=== PATIENT | female | born 2000 | race Caucasian/White ===

== ENCOUNTER 2022-07-07 11:13 | Outpatient (CLI) | payer BC, SELFPAY ==
[2022-07-07 14:08] LABS: Kit Draw Collected
== END 2022-07-07 11:14 | disposition home or self-care (01) ==
LOC: ANHGOSHLAB 11:15
PROVIDERS: PCP Family Medicine; Visit Provider Family Medicine
DX: F41.8 Other specified anxiety disorders (principal); E66.3 Overweight; Z79.899 Other long term (current) drug therapy
CPT/HCPCS: 36415

== ENCOUNTER 2024-11-18 08:44 | Outpatient (CLI) | payer BC, SELFPAY ==
--- NOTE | ~2024-11-18 | US_ITS ---
Pelvic ultrasound. Clinical History: Pelvic pain Technique: Realtime transabdominal and transvaginal scanning of the pelvis was performed. Color flow Doppler and Doppler spectral analysis were performed. Findings: The uterus is retroverted.. The endometrial stripe has a thickness of 3 mm. No focal mass is identified. The right ovary measures 2.2 x 2.3 x 1.4 cm. No significant right ovarian or adnexal mass is seen. The left ovary measures 2.2 x 1.7 x 1.7 cm. No significant left ovarian or adnexal mass is seen. There is no evidence of free fluid in the cul de sac. Impression: Unremarkable pelvic ultrasound. Reviewed, dictated and finalized at location . Impression: Unremarkable pelvic ultrasound.
== END 2024-11-18 08:45 | disposition home or self-care (01) ==
LOC: GOSHIMG 08:44
PROVIDERS: PCP Obstetrics & Gynecology; Visit Provider Obstetrics & Gynecology
DX: R10.2 Pelvic and perineal pain (principal)
CPT/HCPCS: 76830; 76856

== ENCOUNTER 2024-11-28 00:38 | Day surgery (SDC) | payer OTHER, BC, SELFPAY ==
--- NOTE | 2024-11-21 10:52 | PC.NURSE ---
Report to the Outpatient Waiting Room, entrance under the green pavilion located off [facility], at time 0800_ on date _11/28/24_. Planned Procedure Time: _1000_.? Time changes happen often and if your time is changed the preop area will call you the afternoon before. - You and your visitor will be asked to self-screen and do not enter if you have any COVID symptoms. Please call surgeon if you need to reschedule. - A mask is optional within the hospital at this time. Patients may have clear liquids (water, carbonated beverages, clear teas, apple juice) until 3 hours prior to surgery with a maximum of 20 ounces. - No food from midnight until time of surgery and no smoking, or chewing tobacco (or any form of nicotine). No chewing gum, candy or mints. - Infants may have breast milk until 4 hours before surgery, infant formula 6 hours prior to surgery. - Children will be allowed to drink immediately following surgery.? If applicable, please bring a bottle or sippy cup to assist with drinking. Juice, water, soda, and popsicles are readily available.? For infants on formula, please bring formula the day of surgery.? Pacifiers are allowed. Take only the following medications with a SIP of water on the morning of surgery: __AMITRYPTILNE, VENLAFAXINE DO NOT STOP ANY OF YOUR OTHER PRESCRIPTION MEDICATIONS PRIOR TO SURGERY EXCEPT THE FOLLOWING Hold all vitamins and supplements for 3 days per anesthesiologist. Medications to discontinue per physician Date to take last dose Please no make-up, nail belarusian, hairspray, perfume, deodorant, or body powder the day of surgery.? No jewelry (including any body piercings) or valuables the day of surgery, leave them at home.? Please take a shower or bath the night before, or the morning of, surgery with an antibacterial soap.? Wear comfortable, loose fitting clothing.? Children are encouraged to wear pajamas. - Jewelry must be removed prior to entering the operating room.? Rings and piercings that are not removed may be cut off. - The hospital will not accept responsibility for valuables.? - Please leave all valuables, including medications, at home the day of surgery. If you are going home after surgery, a licensed tier truck driver must drive you home.? - NO public transportation without another adult if you receive anesthesia. - We recommend that an adult stay with you for 24 hours following discharge. - We also recommend that you do not drive, make important decision, drink alcoholic beverages, or take any drugs that were not prescribed by your health care provider for at least 24 hours after your discharge time. For Pediatric surgeries, we recommend two adults accompany the child home. Follow any additional instructions given to you from your surgeon. Telephone instructions given to _PATIENT_and asked if any additional questions and then verbalized understanding. Patient advised to call surgeon office or pre surgery nurse liaison [phone] if any additional questions.
--- NOTE | 2024-11-27 10:57 | PM.IMHP ---
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 She is on depo-provera w/o issue (has been on it for at least 3 years; took a break but then has been back on it for another 3 years). Her last injection was the beginning of August 2024. She has a h/o severe pelvic pain; why she has been on depo for so long. She reports that she took a 1 year break, but OCPs did not help (even continuous), she tried Orilissa for a short time too, but that gave her severe hot flashes. She has not ever had surgery, but would like to proceed with surgery this summer. She denies any AUB. She denies any vaginal issues. She denies any breast issues. She is sexually active; has pain (worse when not on depo). She denies any bowel/bladder issues. Review of Systems Constitutional: Constitutional: Denies chills, Denies fever(s) and Denies headache(s) Eyes: Eyes: Denies change in vision ENT: Denies dizziness and Denies headache(s) Cardiovascular: Cardiovascular: Denies chest pain and Denies dyspnea Respiratory: Respiratory: Denies cough and Denies dyspnea Gastrointestinal: Gastrointestinal: Reports abdominal pain and Denies change in stool character Genitourinary: Genitourinary: Denies abnormal menses, Reports pelvic pain, Denies vaginal discharge, Denies vaginal odor and Denies vaginal pruritus Neurologic: Denies dizziness and Denies headache(s) Psychiatric: Psychiatric: Denies anxiety and Denies depression [facility] Past Medical History Medical History Asthma Anxiety Allergies Migraines Surgical History Surgical History H/O shoulder surgery H/O foot surgery extra bone removed from foot Family History Family History Grandparent Diabetes mellitus Heart disease Hodgkins lymphoma Skin cancer Asthma Depression Cerebrovascular accident Thyroid disorder Father Hypertension Mother Depression Sibling Depression Social History Social History (Updated 09/12/24 @ 08:07 by Fabio Farrar MA) Smoking status: Never smoker Alcohol intake: current Alcohol use details: 2 PER MONTH Substance use: never Substance use type: does not use Do You Feel Safe in your Home?: Yes Lack of Transportation: No Lack of Food: Never True Current Housing: I Have Housing Concerned About Future Housing: No Difficulty Paying Gas/Electric Bills: No Difficulty Paying for Meds: No Currently Unemployed: No Education: Bachelor's Degree Difficulty w/ Childcare or Family Care: No Living arrangements: with family Occupation/Education: occupation Additional occupation/education comments: teacher Gender identity (if verbalized by the patient): Female Sexual Orientation (if Verbalized by the Patient): Straight or Heterosexual Meds Home Medications and Allergies Home Medications ?Medication ?Instructions ?Recorded ?Confirmed ?Type venlafaxine 150 mg See Rx Instructions .Route 07/13/24 11/21/24 Rx capsule,extended release 24 hr .COMPLEX #90 caps medroxyprogesterone 150 mg/mL 150 mg IM ONCE #1 mL 09/02/24 11/21/24 Rx intramuscular suspension amitriptyline 10 mg tablet See Rx Instructions .Route 10/06/24 11/21/24 Rx .COMPLEX #60 tabs Allergies Allergy/AdvReac Type Severity Reaction Status Date / Time pseudoephedrine (From AdvReac Intermediate Hives Verified 11/21/24 10:45 Sudafed) Exam Const: General: cooperative, healthy appearing, comfortable and no acute distress Orientation/consciousness: patient oriented x3 Resp: Effort & Inspection: normal respiratory effort Cardio: Rate: regular rate GI: Inspection: normal to inspection GI Palp: No abdominal tenderness and Yes Soft to palpation : Other: deferred to OR Skin: General skin exam: normal color Neuro: General: patient oriented x3 Extrem: General: normal to inspection Psych: Appearance: grossly normal Affect: normal affect Attitude: cooperative Assessment and Plan Assessment and plan (1) Chronic pelvic pain in female: Code(s): R10.2 - Pelvic and perineal pain; G89.29 - Other chronic pain Status: Acute Plan - discussed pelvic pain; need to take a depo break, discussed pelvic floor PT; diagnostic laparoscopy. - Pt would like to proceed with scheduling diagnostic laparoscopy, possible removal of endometrial implants, chromopertubation - risks and benefits discussed in detail
[2024-11-28] VITALS (9 sets, daily range): BP systolic 115–133; BP diastolic 63–77; PULSE 84–102; RESP 15–20; TEMP 36.1–37; O2SAT 97–100; BMI 27.4
--- OUTSIDE RECORDS SUMMARY | 2024-11-28 00:41 | XMS_ITS | Encounter Summary ---
Author Organization [facility] Address [address] [place], [place] [address] [address] Care Team Providers Care Claim Examiner Name Role Phone Heidy Foster MD Unavailable Kimmy Doshi DO Primary Care Provider [phone] Cas Liu PA-C Unavailable [phone] Dat Kearney DO Unavailable [phone] Favio Castillo DO Unavailable [phone] Kimmy Doshi DO Unavailable [phone] Kim Aldana MD Unavailable Jaimee Lomeli MD Unavailable Encounter Details Date Type Department Care Team (Late st Contact Info) Description 03/22/2015 Therapy Visit [facility] [address] [place], [place] [id number] Unknown, Provider Social History Tobacco Use Types Packs/Day Years Used Date Smoking Tobacco: Never Smokeless Tobacco: Never Alcohol Use Standard Drinks/Week Comments No 0 (1 standard drink = 0.6 oz pur e alcohol) Comments No Sex and Gender Information Value Date Recorded Sex Assigned at Female 08/20/2021 9:06 PM LITERACY COACH Legal Sex Female 3:07 PM CDT Gender Identity Female 08/20/2021 9:06 PM LITERACY COACH Sexual Orientation Straight 08/20/2021 9: 06 PM LITERACY COACH documented as of this encounter Functional Status * Is person deaf or have serious hearing difficulty? Answer Date of Assessment Author No 12/12/2014 10:04 AM Chloe Flores RN * Is person blind or have serious difficulty seeing? Answer Date of Assessment Author No 12/12/2014 10:04 AM Chloe Flores RN * Does person have serious difficulty walking/climbing stairs? Answer Date of Assessment Author No 12/12/2014 10:04 AM Chloe Flores RN * Does person have difficulty dressing/bathing? Answer Date of Assessment Author No 12/12/2014 10:04 AM Chloe Flores RN * Does person have difficulty doing errands alone? Answer Date of Assessment Author No 12/12/2014 10:04 AM Chloe Flores RN documented as of this encounter Mental Status * Does person have difficulty concentrating/remembering/making decisions? Answer Entry Date Author No 12/12/2014 10:04 AM Chloe Flores RN documented in this encounter Plan of Treatment Not on file documented as of this encounter Visit Diagnoses Not on filedocumented in this encounter Care Teams Claim Examiner Relationship Specialty Start Date End Date Kimmy Doshi DO [address] [place] [address] PCP - General Family Medicine 02/27/14 Kimmy Doshi DO [address] [place] [address] PCP - [facility] 08/14/17 08/09/23 Heidy Foster MD [address] [facility] [address] [place] [address] Family Medicine 09/30/13 01/21/21 Cas Liu, ANDRIA [address] [facility] [address] [place] [address] Physician Circus Rider Physician Circus Rider 01/01/15 [place] [address] [place] [id number] Orthopedic Surgery 07/09/15 01/21/21 [place] [address] [place] [address] [address] Orthopedic Surgery 02/24/17 01/21/21 Kim Aldana MD [address] [facility] [address] [place] [address] Neurology 06/01/19 Jaimee Lomeli MD [address] [facility] [address] [place] [address] Obstetrics and Gynecology 08/28/20 documented as of this encounter
--- OUTSIDE RECORDS SUMMARY | 2024-11-28 00:41 | XMS_ITS | Encounter Summary ---
Author Organization [facility] Address [address] [place] [address] Care Team Providers Care Power Plant Electrician Name Role Phone Heidy Foster MD Unavailable Kimmy Doshi DO Primary Care Provider [phone] Cas Liu PA-C Unavailable [phone] Dat Kearney DO Unavailable [phone] Favio Castillo DO Unavailable Kimmy Doshi DO Unavailable [phone] Kim Aldana MD Unavailable Jaimee Lomeli MD Unavailable [phone] Encounter Details Date Type Department Care Team (Late st Contact Info) Description 01/08/2017 [facility] Outpatient Visit [facility] [address] [place] [address] Document, Scanned Social History Tobacco Use Types Packs/Day Years Used Date Smoking Tobacco: Never Smokeless Tobacco: Never Alcohol Use Standard Drinks/Week Comments No 0 (1 standard drink = 0.6 oz pur e alcohol) Comments No Sex and Gender Information Value Date Recorded Sex Assigned at Female 08/20/2021 9:06 PM TEACHER LIP READING Legal Sex Female 3:07 PM CDT Gender Identity Female 08/20/2021 9:06 PM TEACHER LIP READING Sexual Orientation Straight 08/20/2021 9: 06 PM TEACHER LIP READING documented as of this encounter Functional Status [...] on filedocumented in this encounter Care Teams Power Plant Electrician Relationship Specialty Start Date End Date Kimmy Doshi DO [address] [place] [address] PCP - General Family Medicine 02/27/14 Kimmy Doshi DO [address] [place] [address] [facility] 08/09/23 Heidy Fsoter MD [address] [facility] [address] [place] [address] Family Medicine 09/30/13 01/21/21 Cas Liu, ANDRIA [address] [facility] [address] [place] [address] Physician Leather Worker Physician Leather Worker 01/01/15 [place] [address] [place] [address] [address] Orthopedic Surgery 07/09/15 01/21/21 [place] [address] [place] [address] [address] Orthopedic Surgery 02/24/17 01/21/21 Kim Aldana MD [address] [place] [address] [address] [place] [id number] Neurology 06/01/19 Jaimee Lomeli MD [address] [place] [address] [address] [place] [address] Obstetrics and Gynecology 08/28/20 documented as of this encounter
--- OUTSIDE RECORDS SUMMARY | 2024-11-28 00:41 | XMS_ITS | Clinical Summary ---
Author Organization [facility] Address [facility] [place] [address] Care Team Providers Care Project Coordinator Rn Name Role Phone Kimmy Doshi Primary Care Provider [phone] Kim Aldana MD Unavailable Jaimee Lomeli MD Unavailable [phone] Source Comments [facility],non-owned Affiliates and Associated Physician Practices is amultiple site organization consisting of ambulatory clinics and hospital sitesin [place], [place], [place] and [place]. This disclosure is being madepursuant to the Care Everywhere program and may not contain all information available regarding this patient. Last updated 18.[facility] Allergies Active Allergy Reactions Criticality Noted Date Comments Pseudoephedrine Base Urticaria Medium 01/10/2021 Medications * Be aware that medications may not be up to date on this document. Alwaysverify current medications with the patient. beclomethasone dipropionate (QVAR) 40 MCG/ACT inhaler Inhale 2 Puffs by mouth 2 times daily 1 Inhaler 1 6 Active Additional Information Patient taking differently:2 puff Inhalation2 TIMES DAILY PRN, Reported on 03/31/2018 predniSONE (DELTASONE) 10 MG tablet Take 4 tabs by mouth daily for 2 days, then 3 tabs daily for 2 days, then 2 tabs daily for 2 days, then 1 tab daily for 2 days 20 tablet 2 Active methocarbamol (ROBAXIN) 500 MG tablet Take 1 (one) tablet by mouth every 6 hours as needed for Muscle Spasms 40 tablet 2 Active venlafaxine XR 24hr (Effexor XR) 75 MG capsule Take 1 (one) capsule by mouth once daily 7 capsule 3 Active amitriptyline (Elavil) 10 MG tablet TAKE 2 TABLETS BY MOUTH AT BEDTIME 180 tablet 1 4 Active Active Problems Problem Noted Date Diagnosed Date Intractable migraine without aura and with status migrainosus 10/26/2018 Depression 07/28/2018 Epigastric abdominal pain 03/02/2017 Anxiety 10/08/2015 Gastrocnemius equinus 08/06/2015 Exercise-induced asthma 05/22/2014 Preventative health care 09/30/2013 Resolved Problems Problem Noted Date Diagnosed Date Resolved Date Excessive weight gain 04/12/20182020 Dyspepsia 04/12/2018 08/28/2020 Chronic right shoulder pain 10/23/2017 08/28/2020 Functional abdominal pain syndrome 08/03/2017 08/28/2020 Abnormal weight loss 03/02/2017 021 Loss of appetite 03/02/2017 08/28/2020 Lower abdominal pain 03/02/2017 021 Constipation 03/02/2017 04/17/2017 Medial tibial stress syndrome 08/06/2015 08/28/2020 Right foot pain 11/20/2014 08/28/2020 Acne 03/02/2014 08/28/2020 Chronic low back pain 09/30/20132013 Immunizations Immunization Administration Dates Next Due DTaP VACCINE IM (6wk-6yrs) 01/12/2006,,2000, 1,2000 HEP A PEDS 2 DOSE 01/30/2014,01/20/2012 HEP B VACCINE, PED/ADOL 2000,2000, HIB-PRP-T 4 DOSE 08/02/2001, 1,2000, 1 Human Papilloma Virus Vaccine 07/22/2012, 012,01/20/2012 MENINGOCOCAL MENINGITIS 01/20/2012 MENINGOCOCCAL ACWY (MCV4P) VAC IM 11/19/2017 MMR 01/12/2006,08/02/2001 PNEUMOCOCCAL PCV7 CONJ, PEDS 2000,09/01/19 01,2000 POLIO IPV 01/12/2006, 1,2000, 1 TDAP (7yrs+) 01/20/2012 VARICELLA 01/20/2012,11/16/2002 Family History Medical History Relation Name Comments Allergies Father Allergies Mother Other Mother GERD, IBS Asthma Paternal Grandmother Celiac Disease Neg Hx Crohn's Disease Neg Hx Relation Name Status Comments Father Alive Mother Alive Paternal Grandmother Alive Sister Alive Social History Tobacco Use Types Packs/Day Years Used Date Smoking Tobacco: Never Smokeless Tobacco: Never Alcohol Use Standard Drinks/Week Comments No 0 (1 standard drink = 0.6 oz pur e alcohol) PHQ-2 Answer Date Recorded PHQ2 TOTAL SCORE 0 08/27/2021 Comments No Sex and Gender Information Value Date Recorded Sex Assigned at Female 08/20/2021 9:06 PM WAFER POLISHER Legal Sex Female 3:07 PM CDT Gender Identity Female 08/20/2021 9:06 PM WAFER POLISHER Sexual Orientation Straight 08/20/2021 9: 06 PM WAFER POLISHER Last Filed Vital Signs Vital Sign Reading Time Taken Comments Blood Pressure 118/62 08/27/2021 8:18 AM WAFER POLISHER Pulse 96 08/27/2021 8:18 AM WAFER POLISHER Temperature 36.5 C (97.7 F) 08/02/2019 2:49 PM WAFER POLISHER Respiratory Rate 16 08/27/2021 8:18 AM WAFER POLISHER Oxygen Saturation 98% 08/27/2021 8:18 AM WAFER POLISHER Inhaled Oxygen Concentration - - Weight 80.7 kg (178 lb) 08/27/2021 8:18 AM WAFER POLISHER Height 165.1 cm (5' 5) 08/27/2021 8:18 AM WAFER POLISHER Body Mass Index 29.62 08/27/2021 8:18 AM WAFER POLISHER Plan of Treatment Health Maintenance Due Date Last Done Comments PAP SMEAR 2000 PNEUMOCOCCAL VACCINE (1 of 1 - PPSV23) 2006 2000, 2000, 2000 HIV SCREENING 2015 CHLAMYDIA/GONORRHEA SCREENING 11/11/2016 11/12/2015 HEPATITIS C SCREENING 04/28/2018 DTAP/TDAP/TD VACCINES (7 - Td or Tdap) 01/19/2022 01/20/2012, 01/12/2006, 08/02/2001, Additional history exists COVID-19 VACCINE ( - season) 2024 DEPRESSION SCREENING 06/22/2024 INFLUENZA VACCINE (Season Ended) 2025 ZOSTER VACCINE (1 of 2) 2050 HEPATITIS B VACCINE Completed 2000, 2000, 2000 HIB VACCINE Completed 08/02/2001, 09/2000, 2000, Additional history exists HPV VACCINE Completed 07/22/2012, 07/2011, 01/20/2012 MENINGOCOCCAL GROUPS A/C/Y/W VACCINE Completed 11/19/2017, 01/20/2012 MENINGOCOCCAL (Group B) VACCINE SHARED DECISION-MAKING Aged Out No longer eligible based on patient's age to complete this topic Medical Devices Implanted Type Area Fork Operator Device Identifier Shelf Expiration Date Model / Serial / Lot Suture [place] Biocomposite Implanted:Qty: 1 on 12/12/2014 by Dat Kearney DO at [facility] Right: Foot [employer] [id number] 09/20/2016 [id number] / / [id number] Surelock All-Suture [place], Flexible Spike Machine Heater, 1.4 Mm Implant Implanted:Qty: 4 on 11/26/2017 by Kenny Howell MD at [facility] Right: Shoulder 07/22/2019 [id number] / / [id number] Procedures Procedure Name Priority Date/Time Associated Diagnosis Comments VAGINITIS PLUS (BV CA CT NG TRICH) Routine 11/12/2015 5:14 PM CDT Vaginal discharge from Last 3 Months or Most Recently Relevant to Health Maintenance Results * VAGINITIS PLUS (BV CA CT NG TRICH) (PO REF) (11/12/2015 5:14 PM CDT) Atopobium vaginae Low - 0 Score [facility] ACCOUNT BILL BVAB 2 Low - 0 Score [facility] ACCOUNT BILL Megashaera Low - 0 Score [facility] ACCOUNT BILL Comment: Calculate total score by adding the 3 individual bacterial vaginosis (BV) marker scores together. Total score is interpreted as follows: Total score 0-1: Indicates the absence of BV. Total score 2: Indeterminate for BV. Additional clinical data should be evaluated to establish a diagnosis. Total score 3-6: Indicates the presence of BV. . This test was developed and its performance characteristics determined by [facility]. It has not been cleared or approved by the Food and Drug Administration. The FDA has determined that such clearance or approval is not necessary. Fang albicans JOHANN Negative Negative [facility] ACCOUNT BILL Fang glabrata JOHANN Negative Negative [facility] ACCOUNT BILL Comment: This test was developed and its performance characteristics determined by [facility]. It has not been cleared or approved by the Food and Drug Administration. The FDA has determined that such clearance or approval is not necessary. Trichomonas vaginalis by JOHANN Negative Negative [facility] ACCOUNT BILL Chlamydia Trachomatis JOHANN Negative Negative [facility] ACCOUNT BILL GC JOHANN Negative Negative [facility] ACCOUNT BILL ENTIRE VAGINA / Unknown 11/12/2015 5:14 PM CDT 11/13/2015 8:18 PM CDT Narrative Resulting Agency Comment [facility] [address] [id number] us Kimmy Doshi DO LAB - MICROBIOLOGY ORDERABLES Final Result [facility] ACCOUNT BILL [address] [place] [address] from Last 3 Months or Most Recently Relevant to Health Maintenance Insurance [facility] [place] [id number] Care Teams Project Coordinator Rn Relationship Specialty Start Date End Date Kimmy Doshi DO [address] [place] [address] PCP - General Family Medicine 02/27/14 Kim Aldana MD [facility] [address] [place] [address] Neurology 06/01/19 Jaimee Lomeli MD [address] [place] [address] [address] [place] [address] Obstetrics and Gynecology 08/28/20
--- OUTSIDE RECORDS SUMMARY | 2024-11-28 00:41 | XMS_ITS | Encounter Summary ---
Author Organization [facility] Address [address] [place], [place] [address] [address] Care Team Providers Care Paint Stock Clerk Name Role Phone Heidy Foster MD Unavailable Kimmy Doshi DO Primary Care Provider [phone] Cas Liu PA-C Unavailable [phone] Dat Kearney DO Unavailable Favio Castillo DO Unavailable [phone] Kimmy Doshi DO Unavailable [phone] Kim Aldana MD Unavailable Jaimee Lomeli MD Unavailable [phone] Encounter Details Date Type Department Care Team (Late st Contact Info) Description 03/28/2015 Therapy Visit [facility]NAL NON[facility] DEPT Cas Liu PA-C [address] [place] [address] [place] [address] Social History Tobacco Use Types Packs/Day Years Used Date Smoking Tobacco: Never Smokeless Tobacco: Never Alcohol Use Standard Drinks/Week Comments No 0 (1 standard drink = 0.6 oz pur e alcohol) Comments No Sex and Gender Information Value Date Recorded Sex Assigned at Female 08/20/2021 9:06 PM FACILITIES CLERK Legal Sex Female 3:07 PM CDT Gender Identity Female 08/20/2021 9:06 PM FACILITIES CLERK Sexual Orientation Straight 08/20/2021 9: 06 PM FACILITIES CLERK documented as of this encounter Functional Status [...] on filedocumented in this encounter Care Teams Paint Stock Clerk Relationship Specialty Start Date End Date Kimmy Doshi DO [address] [place] [address] PCP - General Family Medicine 02/27/14 Kimmy Doshi DO [address] [place] [address] [facility] 08/14/17 08/09/23 [place] [address] [place] [address] Family Medicine 09/30/13 01/21/21 Cas Liu PA-C [address] [address] Physician Licensed Insurance Agent Physician Licensed Insurance Agent 01/01/15 Dat Kearney DO [address] [address] Orthopedic Surgery 07/09/15 01/21/21 Favio Castillo DO [address] [address] Orthopedic Surgery 02/24/17 01/21/21 Kim Aldana MD [address] [place] [address] [address] [place] [address] Neurology 06/01/19 Jaimee Lomeli MD [address] [place] [address] [address] [place] [address] Obstetrics and Gynecology 08/28/20 documented as of this encounter
--- OUTSIDE RECORDS SUMMARY | 2024-11-28 00:41 | XMS_ITS | Encounter Summary ---
Author Organization [facility] Address [address] [place], [place] [address] [address] Care Team Providers Care Patient Access Specialist Name Role Phone Heidy Foster MD Unavailable Kimmy Doshi DO Primary Care Provider [phone] Cas Liu PA-C Unavailable Dat Kearney DO Unavailable [phone] Favio Castillo DO Unavailable Kimmy Doshi DO Unavailable [phone] Kim Aldana MD Unavailable Jaimee Lomeli MD Unavailable [phone] Encounter Details Date Type Department Care Team (Late st Contact Info) Description 03/05/2017 [facility] Outpatient Visit [facility]AB [address] [place] [address] Document, Scanned Social History Tobacco Use Types Packs/Day Years Used Date Smoking Tobacco: Never Smokeless Tobacco: Never Alcohol Use Standard Drinks/Week Comments No 0 (1 standard drink = 0.6 oz pur e alcohol) Comments No Sex and Gender Information Value Date Recorded Sex Assigned at Female 08/20/2021 9:06 PM UPPER STITCHER Legal Sex Female 3:07 PM CDT Gender Identity Female 08/20/2021 9:06 PM UPPER STITCHER Sexual Orientation Straight 08/20/2021 9: 06 PM UPPER STITCHER documented as of this encounter Functional Status [...] on filedocumented in this encounter Care Teams Patient Access Specialist Relationship Specialty Start Date End Date Kimmy Doshi DO [address] [place] [address] PCP - General Family Medicine 02/27/14 Kimmy Doshi DO [address] [place] [address] [facility] 08/14/17 08/09/23 Heidy Foster MD [address] [facility] [address] [place] [address] Family Medicine 09/30/13 01/21/21 Cas Liu PA-C [address] [place] [address] [address] [place] [address] Physician Special Effects Person Physician Special Effects Person 01/01/15 [place] [address] [place] [address] [address] Orthopedic Surgery 07/09/15 01/21/21 Favio Castillo DO [address] [address] Orthopedic Surgery 02/24/17 01/21/21 Kim Aldana MD [address] [place] [address] [address] [place] [address] Neurology 06/01/19 Jaimee Lomeli MD [address] [place] [address] [address] [place] [address] Obstetrics and Gynecology 08/28/20 documented as of this encounter
--- OUTSIDE RECORDS SUMMARY | 2024-11-28 00:41 | XMS_ITS | Encounter Summary ---
Author Organization [facility] Address [facility] [place] [address] Care Team Providers Care Cut Out And Marking Machine Operator Name Role Phone Heidy Foster MD Unavailable Kimmy Doshi DO Primary Care Provider [phone] Cas Liu PA-C Unavailable [phone] Dat Kearney DO Unavailable Favio Castillo DO Unavailable [phone] Kimmy Doshi DO Unavailable [phone] Kim Aldana MD Unavailable Jaimee Lomeli MD Unavailable [phone] Reason for Visit * Reason Onset Date Comments MEDICATION REFILL 05/10/2018 Encounter Details Date Type Department Care Team (Late st Contact Info) Description 05/10/2018 Telephone [facility] Pediatrics - GI [address] [facility] [place] [address] Millie Bryan, SLUSHER OPERATOR-VENETIAN BLIND TAPE CUTTER [address] [place] [address] MEDICATION REFILL Social History Tobacco Use Types Packs/Day Years Used Date Smoking Tobacco: Never Smokeless Tobacco: Never Alcohol Use Standard Drinks/Week Comments No 0 (1 standard drink = 0.6 oz pur e alcohol) Comments No Sex and Gender Information Value Date Recorded Sex Assigned at Female 08/20/2021 9:06 PM EMERGENCY MEDICAL TECH Legal Sex Female 3:07 PM CDT Gender Identity Female 08/20/2021 9:06 PM EMERGENCY MEDICAL TECH Sexual Orientation Straight 08/20/2021 9: 06 PM EMERGENCY MEDICAL TECH documented as of this encounter Functional Status [...] Chloe Flores RN documented in this encounter Miscellaneous Notes * Telephone Encounter - Shayna Ann RN - 05/10/2018 12:26 PM EMERGENCY MEDICAL TECH Spoke to mom regarding Analilia's instructions. They will call office if they don't see any improvement. GENCY MEDICAL TECH * Telephone Encounter - Millie Bryan APRN-CNP - 05/10/2018 12:08 PM CST Let's have her go back up to twice daily on her Prevacid. She can also take Tums PRN. GENCY MEDICAL TECH * Telephone Encounter - Shayna Ann RN - 05/10/2018 10:27 AM EMERGENCY MEDICAL TECH Per Analilia's notes on 04/12/18 - decreased periactin dose from 4mg daily to 2mg daily. If continues to do well on 2mg daily for additional two weeks to d/c medication. Spoke with Evelin's mom - states the pain Evelin has c/o in the past has resolved even with the decrease in periactin. States since last Evelin has been complaining of new epigastric pain and RUQ pain. Mom notes pain episodes are random - not really associated with eating or BM's. Has c/o of some back pain as well as nausea. Pain is persistent throughout the day but worse at times. Taking prevacid as prescribed as well as using tums prn but no improvement. Has not vomited, no fever, no diarrhea, having regular BM's, eating ok per mom but appetite has decreased, drinking well. Mom unableto describe pain - she is getting ready to pick Evelin up from school d/t discomfort. Will route to Analilia to review. GENCY MEDICAL TECH * Telephone Encounter - Yolanda Clay - 05/10/2018 9:33 AM CST Pharmacy faxed over refill request for 4mg tablets with different directions than what is listed inpt's chart. We have pt taking 0.5 tablets qhs, pharmacy's sig says for pt to take 1 whole tablet qhs. Was there a change in script? GENCY MEDICAL TECH documented in this encounter Plan of Treatment Not on file documented as of this encounter Visit Diagnoses Not on filedocumented in this encounter Care Teams Cut Out And Marking Machine Operator Relationship Specialty Start Date End Date Kimmy Doshi DO [address] [place], [place] [id number] PCP - General Family Medicine 02/27/14 Kimmy Doshi DO [address] [place] [address] PCP - Attributed-[employer] 08/14/17 08/09/23 Heidy Foster MD [address] [address] Family Medicine 09/30/13 01/21/21 Cas Liu PATanika [address] [address] Physician Answering Service Operator Physician Answering Service Operator 01/01/15 [place] [address] [place] [address] [address] Orthopedic Surgery 07/09/15 01/21/21 [place] [address] [place] [address] [id number] Orthopedic Surgery 02/24/17 01/21/21 Kim Aldana MD [address] [place] [address] [place] [address] Neurology 06/01/19 Jaimee Lomeli MD [address] [place] [address] [place] [address] Obstetrics and Gynecology 08/28/20 documented as of this encounter
--- OUTSIDE RECORDS SUMMARY | 2024-11-28 00:41 | XMS_ITS | Referral Summary ---
Author Organization [facility] Address [address] [place] [address] Care Team Providers Care Immunology Teacher Name Role Phone Kimmy Doshi Primary Care Provide r Allergies Active Allergy Reactions Criticality Noted Date Comments Pseudoephedrine Hives,Urticaria Medium 01/10/2021 Medications amitriptyline (ELAVIL) 10 mg tablet 20 mg q.h.s. 10/16/19 21 Active levonorgestreL -ethinyl estrad (Lessina) 0.1-20 mg-mcg per tablet Take 1 tablet by mouth daily 28 tablet 12 12/31/19 22 Active Additional Information Patient not taking.Reported on 03/10/2023 venlafaxine 150 mg tablet extended release 24hr 24 hr tablet Take 1 tablet (150 mg total) by mouth daily Active medroxyPROGEST ERone 150 mg/mL injection INJECT 1ML INTRAMUSCULARLY EVERY 3 MONTHS 01/09/20 23 Active Active Problems Problem Noted Date Diagnosed Date Otitis media 03/10/2023 Overview (03/10/2023): RIGHT URI (upper respiratory infection) 03/10/2023 Encounter for PPD skin test reading 08/28/2022 Pelvic and perineal pain 01/10/2021 Intractable migraine without aura and with status migrainosus 10/26/2018 Depression 07/28/2018 Epigastric abdominal pain 03/02/2017 Migraine headache 07/22/2016 Anxiety 10/08/2015 Gastrocnemius equinus 08/06/2015 Exercise-induced asthma 05/22/2014 Immunizations Immunization Administration Dates Next Due PPD TEST 08/25/2022,02/19/2022 Social History Tobacco Use Types Packs/Day Years Used Date Smoking Tobacco: Never Smokeless Tobacco: Never Comments No Sex and Gender Information Value Date Recorded Sex Assigned at Not on file Legal Sex Female 1:27 PM DAMPENER OPERATOR Gender Identity Female 11/07/2021 2:46 AM CDT Sexual Orientation Straight 11/07/2021 2: 46 AM CDT Last Filed Vital Signs Vital Sign Reading Time Taken Comments Blood Pressure 116/80 03/10/2023 2:35 PM CDT Pulse 73 03/10/2023 2:35 PM CDT Temperature 36.7 C (98.1 F) 03/10/2023 2:35 PM CDT Respiratory Rate 20 03/10/2023 2:35 PM CDT Oxygen Saturation 99% 03/10/2023 2:35 PM CDT Inhaled Oxygen Concentration - - Weight 77.1 kg (170 lb) 03/10/2023 2:35 PM CDT Height 166.4 cm (5' 5.5) 03/10/2023 2:35 PM CDT Body Mass Index 27.86 03/10/2023 2:35 PM CDT Plan of Treatment Not on file Insurance [facility] ACCESS CHOICE BLUE ACC CHOICE OOS [facility] [place] [address] ANTHEM ACCESS CHOICE Care Teams Immunology Teacher Relationship Specialty Start Date End Date Kimmy Doshi DO [address] [place] [address] PCP - General Family Medicine 04/26/18
--- OUTSIDE RECORDS SUMMARY | 2024-11-28 00:41 | XMS_ITS | Encounter Summary ---
Author Organization [facility] Address [address] [place] [address] [place] [address] Care Team Providers Care Inter Fold Roll Cutter Name Role Phone Heidy Foster MD Unavailable Kimmy Doshi DO Primary Care Provider [phone] Cas Liu PA-C Unavailable Dat Kearney DO Unavailable [phone] Favio Castillo DO Unavailable [phone] Kimmy Doshi DO Unavailable [phone] Kim Aldana MD Unavailable Jaimee Lomeli MD Unavailable [phone] Encounter Details Date Type Department Care Team (Late st Contact Info) Description 11/20/2014 [facility] Outpatient Visit [facility] Orthopedics - Radiology [address] [place] [address] Dat Kearney DO [address] [address] Social History Tobacco Use Types Packs/Day Years Used Date Smoking Tobacco: Never Smokeless Tobacco: Never Alcohol Use Standard Drinks/Week Comments No 0 (1 standard drink = 0.6 oz pur e alcohol) Comments No Sex and Gender Information Value Date Recorded Sex Assigned at Female 08/20/2021 9:06 PM CHANGE MANAGEMENT LEAD Legal Sex Female 3:07 PM CDT Gender Identity Female 08/20/2021 9:06 PM CHANGE MANAGEMENT LEAD Sexual Orientation Straight 08/20/2021 9: 06 PM CHANGE MANAGEMENT LEAD documented as of this encounter Plan of Treatment Not on file documented as of this encounter Visit Diagnoses Not on filedocumented in this encounter Care Teams Inter Fold Roll Cutter Relationship Specialty Start Date End Date Kimmy Doshi DO [address] [place] [address] PCP - General Family Medicine 02/27/14 Kimmy Doshi DO [address] [place] [address] PCP - [facility] 08/14/17 08/09/23 Heidy Foster MD [address] [phone] Family Medicine 09/30/13 01/21/21 Cas Liu PA-C [address] [place] [address] [id number] Physician Button Tufter Physician Button Tufter 01/01/15 [place] [address] [place] [address] Orthopedic Surgery 07/09/15 01/21/21 [place] [address] [place] [address] [id number] Orthopedic Surgery 02/24/17 01/21/21 Kim Aldana MD [address] [place] [phone] Neurology 06/01/19 Jaimee Lomeli MD [address] [place] [address] Obstetrics and Gynecology 08/28/20 documented as of this encounter
--- OUTSIDE RECORDS SUMMARY | 2024-11-28 00:41 | XMS_ITS | Encounter Summary ---
Author Organization [facility] Address [address] [place], [place] [address]L[place] [address] Care Team Providers Care Interior Design Instructor Name Role Phone Heidy Foster MD Unavailable Kimmy Doshi DO Primary Care Provider [phone] Cas Liu PA-C Unavailable [phone] Dat Kearney DO Unavailable [phone] Favio Castillo DO Unavailable [phone] Kimmy Doshi DO Unavailable [phone] Kim Aldana MD Unavailable Jaimee Lomeli MD Unavailable [phone] Encounter Details Date Type Department Care Team (Late st Contact Info) Description 08/18/2015 Therapy Visit [facility] PHYSICAL THERAPY [address] [place], [place] [id number] Unknown, Provider Social History Tobacco Use Types Packs/Day Years Used Date Smoking Tobacco: Never Smokeless Tobacco: Never Alcohol Use Standard Drinks/Week Comments No 0 (1 standard drink = 0.6 oz pur e alcohol) Comments No Sex and Gender Information Value Date Recorded Sex Assigned at Female 08/20/2021 9:06 PM ORAL AND MAXILLOFACIAL SURGERY RESIDENT Legal Sex Female 3:07 PM CDT Gender Identity Female 08/20/2021 9:06 PM ORAL AND MAXILLOFACIAL SURGERY RESIDENT Sexual Orientation Straight 08/20/2021 9: 06 PM ORAL AND MAXILLOFACIAL SURGERY RESIDENT documented as of this encounter Functional Status [...] on filedocumented in this encounter Care Teams Interior Design Instructor Relationship Specialty Start Date End Date Kimmy Doshi DO [address] [place] [address] PCP - General Family Medicine 02/27/14 Kimmy Doshi DO [address] [place] [address] PCP - [facility] 08/14/17 08/09/23 Heidy Foster MD [address] [facility] [address] [place] [address] Family Medicine 09/30/13 01/21/21 Cas Liu, ANDRIA [address] [facility] [address] [place] [address] Physician Mine Production Engineer Physician Mine Production Engineer 01/01/15 [place] [address] [place] [id number] Orthopedic Surgery 07/09/15 01/21/21 [place] [address] [place] [address] [address] Orthopedic Surgery 02/24/17 01/21/21 Kim Aldana MD [address] [facility] [address] [place] [address] Neurology 06/01/19 Jaimee Lomeli MD [address] [facility] [address] [place] [address] Obstetrics and Gynecology 08/28/20 documented as of this encounter
--- OUTSIDE RECORDS SUMMARY | 2024-11-28 00:41 | XMS_ITS | Encounter Summary ---
Author Organization [facility] Address [address] [place], [place] [address] [address] Care Team Providers Care Orchid Transplanter Name Role Phone Heidy Foster MD Unavailable Kimmy Doshi DO Primary Care Provider Cas Liu PA-C Unavailable [phone] Dat Kearney DO Unavailable [phone] Favio Castillo DO Unavailable [phone] Kimmy Doshi DO Unavailable [phone] Kim Aldana MD Unavailable Jaimee Lomeli MD Unavailable [phone] Encounter Details Date Type Department Care Team (Late st Contact Info) Description 03/06/2015 Therapy Visit [facility] PHYSICAL THERAPY [address] [place], [place] [id number] Unknown, Provider Social History Tobacco Use Types Packs/Day Years Used Date Smoking Tobacco: Never Smokeless Tobacco: Never Alcohol Use Standard Drinks/Week Comments No 0 (1 standard drink = 0.6 oz pur e alcohol) Comments No Sex and Gender Information Value Date Recorded Sex Assigned at Female 08/20/2021 9:06 PM EXTENSION CLERK Legal Sex Female 3:07 PM CDT Gender Identity Female 08/20/2021 9:06 PM EXTENSION CLERK Sexual Orientation Straight 08/20/2021 9: 06 PM EXTENSION CLERK documented as of this encounter Functional [...] on filedocumented in this encounter Care Teams Orchid Transplanter Relationship Specialty Start Date End Date Kimmy Doshi DO [address] [place] [address] PCP - General Family Medicine 02/27/14 Kimmy Doshi DO [address] [place] [address] PCP - [facility] 08/14/17 08/09/23 Heidy Foster MD [address] [facility] [address] [place] [address] Family Medicine 09/30/13 01/21/21 Cas Liu, ANDRIA [address] [facility] [address] [place] [address] Physician Cmm Programmer Physician Cmm Programmer 01/01/15 [place] [address] [place] [id number] Orthopedic Surgery 07/09/15 01/21/21 [place] [address] [place] [address] [address] Orthopedic Surgery 02/24/17 01/21/21 Kim Aldana MD [address] [facility] [address] [place] [address] Neurology 06/01/19 Jaimee Lomeli MD [address] [facility] [address] [place] [address] Obstetrics and Gynecology 08/28/20 documented as of this encounter
--- OUTSIDE RECORDS SUMMARY | 2024-11-28 00:41 | XMS_ITS | Clinical Summary ---
Author Organization [facility] Address [address] [place] [address] Care Team Providers Care Certified Nurse Practitioner Name Role Phone Kimmy Doshi Primary Care [...] on file Legal Sex Female 1:27 PM RECRUITER Gender Identity Female 11/07/2021 2:46 AM CDT Sexual Orientation Straight 11/07/2021 2: 46 AM CDT Obstetrics History Para Term AB IAB SAB Ectopic Multiple Livin g Live Births 0 0 0 0 0 0 0 0 0 0 0 Last Filed Vital Signs Vital Sign Reading [...] 03/10/2023 2:35 PM CDT Plan of Treatment Health Maintenance Due Date Last Done Comments Cervical Cancer Screening 2000 Chlamydia and Gonorrhea (GC/ CT) Screening 2000 Depression Screening 2000 Hepatitis C Screening 2000 Pneumococcal vaccine <65 (1 of 1 - PPSV23) 2006 2000, 2000, 2000 Regular Well Visit/Exam 18-64 2018 DTaP/Tdap/Td Vaccine (7 - Td or Tdap) 01/19/2022 01/20/2012, 01/12/2006, 08/02/2001, Additional history exists Influenza Vaccine (Season Ended) 2025 Hepatitis B Screening Completed 2000 , 2000, 2000, Additional history exists Varicella Vaccines Completed 01/20/2012, 11/16/2002 HPV Vaccines Completed 07/22/2012, 1007/2011, 01/20/2012 Insurance ANTHEM ACCESS CHOICE BLUE ACC CHOICE OOS ANTHEM ACCESS CHOICE Care Teams Certified Nurse Practitioner Relationship Specialty Start Date End Date Kimmy Doshi DO [address] [place] [address] PCP - General Family Medicine 04/26/18
--- OUTSIDE RECORDS SUMMARY | 2024-11-28 00:41 | XMS_ITS | Encounter Summary ---
Author Organization [facility] Address [address] [place], [place] [address] [place] [address] Care Team Providers Care Master Cosmetologist Name Role Phone Heidy Foster MD Unavailable Kimmy Doshi DO Primary Care Provider [phone] Cas Liu PA-C Unavailable [phone] Dat Kearney DO Unavailable [phone] Favio Castillo DO Unavailable [phone] Kimmy Doshi DO Unavailable [phone] Kim Aldana MD Unavailable Jaimee Lomeli MD Unavailable [phone] Encounter Details Date Type Department Care Team (Late st Contact Info) Description 02/20/2015 Therapy Visit [facility] PHYSICAL THERAPY [address] [place], [place] [id number] Unknown, Provider Social History Tobacco Use Types Packs/Day Years Used Date Smoking Tobacco: Never Smokeless Tobacco: Never Alcohol Use Standard Drinks/Week Comments No 0 (1 standard drink = 0.6 oz pur e alcohol) Comments No Sex and Gender Information Value Date Recorded Sex Assigned at Female 08/20/2021 9:06 PM JET DYEING MACHINE OPERATOR Legal Sex Female 3:07 PM CDT Gender Identity Female 08/20/2021 9:06 PM JET DYEING MACHINE OPERATOR Sexual Orientation Straight 08/20/2021 9: 06 PM JET DYEING MACHINE OPERATOR documented as of this encounter Functional Status [...] on filedocumented in this encounter Care Teams Master Cosmetologist Relationship Specialty Start Date End Date Kimmy Doshi DO [address] [place] [address] PCP - General Family Medicine 02/27/14 Kimmy Doshi DO [address] [place] [address] PCP - [facility] 08/14/17 08/09/23 Heidy Foster MD [address] [facility] 200 [place] [address] Family Medicine 09/30/13 01/21/21 Cas Liu, ANDRIA [address] [facility] 117 [place] [address] Physician Hairspring Staker Physician Hairspring Staker 01/01/15 [place] [address] [place] [id number] Orthopedic Surgery 07/09/15 01/21/21 [place] [address] [place] [address] [address] Orthopedic Surgery 02/24/17 01/21/21 Kim Aldana MD 300 [facility] [address] [place] [address] Neurology 06/01/19 Jaimee Lomeli MD [address] [facility] [address] [place] [address] Obstetrics and Gynecology 08/28/20 documented as of this encounter
--- NOTE | 2024-11-28 07:05 | WPDHPUPDATE1 ---
History and Physical Update Update Date/Time: 11/28/24 07:05 History and Physical has been reviewed, including an updated exam of the patient. There are NO changes in the patient's condition. Risks, benefits, and alternatives have been discussed and questions answered. Patient agrees to proceed with diagnostic laparoscopy, possible removal of endometrial implants, chromopertubation.
[2024-11-28] MEDS: ACETAMINOPHEN 500 MG TABLET 1000 MG PO (08:45)
[2024-11-28] MEDS: LACTATED RINGERS 1,000 ML 30 ML IV CONT ×2 (08:50→10:50)
[2024-11-28] MEDS: KETOROLAC 15 MG/ML VIAL (*BKC) IV PUSH (08:55)
--- NOTE | 2024-11-28 09:22 | P.PNAN_ITS ---
Anes - Initial Pre Proc Eval Procedure: Operation Date: 11/28/24 10:00 Proposed Procedures p Diagnostic Laparoscopy Chromopertubation, Possible Lysis of Adhesions - Minna Cedeno MD Date/Time: 11/28/24 09:22 Surgeon: Minna Cedeno MD Pre Op Diagnosis: Pelvic Pain Patient Data Age: 24 Gender: F Height: 1.65 m Weight: 74.75 kg Last Vital Signs Temp 37.0 C 11/28/24 08:31 Pulse 90 11/28/24 08:31 Resp 16 11/28/24 08:31 BP 126/71 11/28/24 08:31 Pulse Ox 99 11/28/24 08:31 O2 Del Method Room Air 11/28/24 08:31 Allergies Allergy/AdvReac Type Severity Reaction Status Date / Time pseudoephedrine (From AdvReac Intermediate Hives Verified 11/21/24 10:45 Sudafed) Home Medications ?Medication ?Instructions ?Recorded ?Confirmed ?Type venlafaxine 150 mg See Rx Instructions .Route 07/13/24 11/21/24 Rx capsule,extended release 24 hr .COMPLEX #90 caps medroxyprogesterone 150 mg/mL 150 mg IM ONCE #1 mL 09/02/24 11/21/24 Rx intramuscular suspension amitriptyline 10 mg tablet See Rx Instructions .Route 10/06/24 11/21/24 Rx .COMPLEX #60 tabs Patient hx anesthesia problems: none Family hx anesthesia problems: none Results Review: All pre-operative results and documents have been reviewed as part of the pre- operative evaluation. FORMERLY [facility], [facility]–1983 Past Medical History Medical History Asthma Anxiety Allergies Migraines Surgical History Surgical History H/O shoulder surgery H/O foot surgery extra bone removed from foot Family History Family History Grandparent Diabetes mellitus Heart disease Hodgkins lymphoma Skin cancer Asthma Depression Cerebrovascular accident Thyroid disorder Father Hypertension Mother Depression Sibling Depression Social History Social History Smoking status: Never smoker Alcohol intake: current Alcohol use details: rarely Substance use: never Substance use type: does not use Do You Feel Safe in your Home?: Yes Lack of Transportation: No Lack of Food: Never True Current Housing: I Have Housing Concerned About Future Housing: No Difficulty Paying Gas/Electric Bills: No Difficulty Paying for Meds: No Currently Unemployed: No Education: Bachelor's Degree Difficulty w/ Childcare or Family Care: No Living arrangements: with family Occupation/Education: occupation Additional occupation/education comments: teacher Gender identity (if verbalized by the patient): Female Sexual Orientation (if Verbalized by the Patient): Straight or Heterosexual Anes - Eval Final PreProcedure Day of Procedure 11/28/24 09:22 Patient weight: normal Heart: regular rate and rhythm Lungs: clear to auscultation Airway: Mallampati scale class 1 Neurological: alert and oriented Last oral intake: >/= 8 hours ASA classification: II Emergent: no Anesthetic plan: proceed Anesthesia type and monitoring: general ETT and standard monitoring Results Review: All pre-operative results and documents have been reviewed as part of the pre- operative evaluation. Informed Consent: The patient's anesthetic plan and its attendant risks and benefits were discussed with the patient/family/POA. Questions were solicited and answers provided to the satisfaction of the patient/family/POA.
[2024-11-28 10:07] LABS: BEDSIDEPREGUCG Negative (Negative)
[2024-11-28] MEDS: BUPIVACAINE/EPINEPHRINE 0.5% 50 ML VIAL 20 ML INFILTRATE (10:08)
--- NOTE | 2024-11-28 10:16 | S_PTH ---
PATIENT: Evelin Putnam LOC: [facility] U#:[id number] AGE/SX: 24/F ROOM: RE11/28/[address]: Minna Cedeno MD : 2000 BED: DIS: 11/28/2024 SPEC #: [id number] RECD: 11/28/24 13:11 STATUS: FLACA REQ #: [id number] RADHA: 11/28/24 10:[address]: Minna Cedeno DEPT: [facility] Surgical RECD BY: Lauren Trujillo ENTERED: 11/28/24 13:11 SP TYPE: Surgical OTHR DR: Palmira Lim APRN Tissues: A - [place] Biopsy Procedures: Hematoxylin and Eosin Stain Gross and Microscopic Level 4
--- NOTE | 2024-11-28 10:42 | P.OP_ITS ---
Procedure Note - Detailed Date of Procedure 11/28/24 Pre-op Diagnosis Chronic Pelvic Pain Post-op Diagnosis Other (Endometriosis determined by laparoscopy) Procedure Performed Diagnostic laparoscopy, fulguration and biopsy of endometrial implants, chromopertubation Surgeon Minna Cedeno MD Anesthesia General and Local (19cc of 0.5% marcaine w/ epi) Findings Uterus sounded to 7 cm, normal appearing cervix. On diagnostic laparoscopy be significant inflammation/erythema of the peritoneum in the pelvis (covering the uterus, broad ligament, fallopian tubes.) Endometrial implants noted along the right pelvic sidewall above the uterosacral ligament, left pelvic sidewall above the utero sacral ligament and at the base/underside of the uterus/uterus sacral ligaments (so all in the posterior cul de sac). There were also endometrial implants at the fundus and posterior uterus. Biopsy was obtained from the 2 large endometrial implants along the right pelvic sidewall in the posterior cul de sac. Normal ovaries and fallopian tubes bilaterally. Normal chromopertubation with spillage of methylene blue from the bilateral fallopian tubes. Good hemostasis at end of the case. Description of Procedure Evelin was taken to the operating room where she was placed under general endotracheal anesthesia without complications. She was then prepped and draped in the usual sterile fashion in the dorsal lithotomy position with her legs in low Steven stirrups and her arms tucked at her side with a strap over her chest. A time-out was performed and no preoperative antibiotics were indicated. My attention was turned down below where her bladder was drained via straight catheterization. A bivalve speculum was then placed within the vagina where the cervix was easily identified. The anterior lip of the cervix was grasped with a single-tooth tenaculum, the uterus was sounded, and a diagnostic uterine manipulator was placed without complications. My gloves were changed and my attention was turned to her abdomen. An umbilical incision was made, and a 5 mm trocar was placed under direct visualization without complications. Once intra- abdominal placement was confirmed the abdomen was insufflated with carbon dioxide gas. She was then placed in Trendelenburg and two additional 5 mm ports were placed in the left and right lower quadrants under direct visualization without complications. The above findings were noted. Grasping the endometrial implants in the left pelvic sidewall/posterior cul-de-sac above the uterus a for using the LigaSure device I was able to remove that peritoneum without complication and minimal bleeding to be sent for biopsy. Using the monopolar LigaSure L hook I attempted to start fulgurating the endometrial implant at the base/underside of the uterus were the 2 uterosacral ligaments met however the LigaSure device was not working. I then got a laparoscopic needle attached to monopolar cautery and the implant was then easily cauterized. The left pelvic sidewall endometrial implants in the posterior cul-de-sac were then cauterized using the LigaSure needle without complication. The implants on the fundus and posterior uterus were then cauterized so using the monopolar needle. The pelvis was then and irrigated and suctioned free of all clots and debris all areas were found to be hemostatic. 10 cc of methylene blue were placed within 90 cc of normal saline. 10 cc of that solution was then pushed through the uterine manipulator and spillage was noted from the bilateral fallopian tubes without complication. Pictures were obtained of all of the lesions as well as spillage from the bilateral tubes. The pelvis was once again irrigated and suctioned free of all fluid. The cauterized/biopsied areas were once again examined and good hemostasis was noted. All instruments were removed from the abdomen. The insufflation was released and the trocars were removed. The 3 laparoscopic incision sites were reapproximated using 4-0 Monocryl and covered with Dermabond. The incisions were then infiltrated using 0.5% Marcaine with epinephrine. The uterine manipulator was removed. Sponge, lap, instrument, and needle counts were correct at the end of the procedure. Patient was awoken from general anesthesia and taken to recovery with plans of same-day discharge home. Estimated Blood Loss 20 IV Fluids 1,200 Urine Output 100 Drains No Packing No Pathology Yes (biopsy of right pelvic side wall/posterior cul de sac containing endometrial implants) Complications No immediate complications Condition Stable Disposition Same day [facility] Billing Surgery - Charge Forward: Surgery Billing
== END 2024-11-28 12:59 | disposition home or self-care (01) ==
PROVIDERS: PCP Nurse Practitioner; Visit Provider Obstetrics & Gynecology
PROC: (CPT 49320; principal; 2024-11-28 10:00)
DX: N80.353 Endometriosis of bilateral pelvic sidewall, unspecified depth (principal); N80.329 Endometriosis of the posterior cul-de-sac, unspecified depth; N80.00 Endometriosis of the uterus, unspecified; R10.2 Pelvic and perineal pain; G89.29 Other chronic pain
CPT/HCPCS: 58662; 88305; A9270; J1100; J1885; J2003; J2250; J2405; J2704; J3010; J7120; Q9968